=== PATIENT | male | born 1945 | race Two or more races ===

== ENCOUNTER 2019-05-29 11:27 | Inpatient (IN) | payer OTHER, MEDICARE ==
[~2019-05-29] VITALS: Ht 160 cm; Wt 62.9 kg
[2019-06-07 13:14] VITALS: BP 97/61
== END 2019-06-07 16:36 | disposition home or self-care (01) | DRG 215 ==
LOC: ED 12:33 → EDIP 13:14 → 5SO 14:31 → CCU 06-05 14:41 → 5SO 06-06 10:30
PROVIDERS: ADMIT Hospitalist; ATTEND Hospitalist
PROC: 4A023N7 Measurement of Cardiac Sampling and Pressure, Left Heart, Percutaneous Approach (ICD-10-PCS; 2019-06-01)
PROC: B2111ZZ Fluoroscopy of Multiple Coronary Arteries using Low Osmolar Contrast (ICD-10-PCS; 2019-06-01)
PROC: B41F1ZZ Fluoroscopy of Right Lower Extremity Arteries using Low Osmolar Contrast (ICD-10-PCS; 2019-06-01)
PROC: 02HA3RJ Insertion of Short-term External Heart Assist System into Heart, Intraoperative, Percutaneous Approach (ICD-10-PCS; principal; 2019-06-05)
PROC: 027034Z Dilation of Coronary Artery, One Artery with Drug-eluting Intraluminal Device, Percutaneous Approach (ICD-10-PCS; 2019-06-05)
PROC: 5A0221D Assistance with Cardiac Output using Impeller Pump, Continuous (ICD-10-PCS; 2019-06-05)
DX: I24.9 Acute ischemic heart disease, unspecified (principal); I50.43 Acute on chronic combined systolic (congestive) and diastolic (congestive) heart failure; I25.118 Atherosclerotic heart disease of native coronary artery with other forms of angina pectoris; D75.89 Other specified diseases of blood and blood-forming organs; E11.65 Type 2 diabetes mellitus with hyperglycemia; E78.5 Hyperlipidemia, unspecified; I11.0 Hypertensive heart disease with heart failure; I08.3 Combined rheumatic disorders of mitral, aortic and tricuspid valves; I25.5 Ischemic cardiomyopathy; I27.29 Other secondary pulmonary hypertension; I27.81 Cor pulmonale (chronic); M10.071 Idiopathic gout, right ankle and foot; Z79.899 Other long term (current) drug therapy; Z83.3 Family history of diabetes mellitus; Z87.891 Personal history of nicotine dependence; Z95.2 Presence of prosthetic heart valve
CPT/HCPCS: 33990; 36415; 73630; 93017; 93454; 99285; C9600; J3490; 0399T; 71045; 78452; 80048; 80053; 80061; 83036; 83735; 83880; 84100; 84443; 84484; 84550; 85025; 85610; 85730; 87081; 93005; 93306; 93922; 93970; 96374; 99156; 99157; C1760; C1769; C1894; G0378; J0583; J1644; J1650; J2250; J2785; J3010; A9502; C1725; C1874; C1887; J1940; J7030; J7050; J7512; Q9967

== ENCOUNTER 2019-10-02 06:46 | Outpatient (CLI) | payer OTHER, MEDICARE ==
[~2019-10-02 06:46] MED LIST: ACET325T26 PO; ALLO100T30 PO; ASPI81TA45 PO; ATOR10TA9 PO; ATOR40TA78 PO; CARV6.2512 PO; FURO-93 PO; FURO20TA3 PO; LISI5TAB7 PO; METO25TA91 PO; PRED20TA PO; SPIR25TA5 PO; TICA90TA PO
== END 2019-10-02 23:59 | disposition home or self-care (01) ==
LOC: CFH 06:46
PROVIDERS: ATTEND Registered Nurse
DX: I08.3 Combined rheumatic disorders of mitral, aortic and tricuspid valves (principal); E78.5 Hyperlipidemia, unspecified; I25.2 Old myocardial infarction
CPT/HCPCS: 93306

== ENCOUNTER 2019-10-29 08:00 | Outpatient (CLI) | payer OTHER, MEDICARE ==
[2019-10-29] MEDS ORDERED: SPIR25TA5 PO (09:51)
[2019-10-29] MEDS ORDERED: ASPI-496 PO (09:51)
[2019-10-29] MEDS ORDERED: METO25TA91 PO (09:51)
[2019-10-29] MEDS ORDERED: LISI5TAB7 PO (09:51)
[2019-10-29] MEDS ORDERED: ATOR40TA78 PO (09:51)
[2019-10-29] MEDS ORDERED: ALLO100T30 PO (09:51)
[2019-10-29] MEDS ORDERED: ASCO500T8 PO (10:00)
[2019-10-29] MEDS ORDERED: MULT-658 PO (10:00)
== END 2019-10-29 23:59 | disposition home or self-care (01) ==
LOC: STAR 08:00
PROVIDERS: ATTEND Internal Medicine Cardiovascular Disease
DX: I25.5 Ischemic cardiomyopathy (principal)
CPT/HCPCS: 93005

== ENCOUNTER 2019-11-01 10:24 | Observation (INO) | payer OTHER, MEDICARE ==
[2019-10-29 09:45] VITALS: BP 102/56
[2019-10-29 10:22] LABS: BASOPHILS # (AUTO) 0.01 x10^3/uL (0-0.1); BASOPHILS % (AUTO) 0 % (0-1); EOSINOPHILS # (AUTO) 0.05 x10^3/uL (0-0.4); EOSINOPHILS % (AUTO) 1 % (1-7); LYMPHOCYTES # (AUTO) 1.36 x10^3/uL (1-3.4); LYMPHOCYTES % (AUTO) 24 % (22-44); MD NO; MEAN CORPUSCULAR HEMOGLOBIN 33.7 pg (27.5-34.5); MEAN CORPUSCULAR HGB CONC 32.8 g/dL (33.2-36.2); MEAN CORPUSCULAR VOLUME 102.6 fL (81-97); MEAN PLATELET VOLUME 9.5 fL (7.4-10.4); MONOCYTES # (AUTO) 0.45 x10^3/uL (0.2-0.8); MONOCYTES % (AUTO) 8 % (2-9); NEUTROPHILS # (AUTO) 3.93 x10^3/uL (1.8-6.8); NEUTROPHILS % (AUTO) 68 % (42-75); PLATELET COUNT 193 x10^3/uL (130-400); RED BLOOD COUNT 4.34 x10^6/uL (4.38-5.82); RED CELL DISTRIBUTION WIDTH 13.3 % (9.4-14.8)
[2019-10-29 10:32] LABS: INTERNATIONAL NORMALIZED RATIO 1.01 (0.93-1.1); PROTHROMBIN TIME 10.6 Seconds (9.6-11.5)
[2019-10-29 10:35] LABS: ANION GAP 4 mmol/L (5-15); CALCIUM 8.7 mg/dL (8.5-10.1); CHLORIDE 109 mmol/L (98-107); CREATININE 0.89 mg/dL (0.7-1.3)
[~2019-11-01] VITALS: Ht 160 cm; Wt 59.0 kg
[~2019-11-01 10:24] MED LIST changes: +ASCO500T8 PO; +ASPI-496 PO; +MULT-658 PO
[2019-11-01] MEDS ORDERED: SODIUM CHLORIDE 0.9% 1,000 ML IV SCH (11:21)
[2019-11-01] MEDS ORDERED: CLOP75TA52 PO (11:35)
[2019-11-01] MEDS ORDERED: CEFAZOLIN PMX 1GM/50ML 50 ML ONE (13:49)
[2019-11-01] MEDS ORDERED: CEFAZOLIN 1,000 MG ONE (13:49)
[2019-11-01] MEDS ORDERED: MIDAZOLAM 1 MG/ML, 5ML ONE (13:49)
[2019-11-01] MEDS ORDERED: FENTANYL PF 100 MCG/2ML ONE (13:49)
[2019-11-01] MEDS ORDERED: HYDROcodone/APAP 5/325 TABLET PO PRN (15:30)
[2019-11-01] MEDS ORDERED: ACETAMINOPHEN 325 MG TABLET PO PRN (15:30)
[2019-11-01] MEDS ORDERED: HOLD MEDICATION MC PRN (15:30)
[2019-11-01 20:00] VITALS: BP 100/59
[2019-11-01] MEDS ORDERED: ATORVASTATIN 40 MG TABLET PO SCH (21:00)
[2019-11-01] MEDS: CEFAZOLIN PMX 1GM/50ML 50 ML IVPB SCH (21:02)
[2019-11-01] MEDS: SODIUM CHLORIDE FLUSH 10ML SYR IVF SCH (21:03)
[2019-11-01 22:52] VITALS: BP 100/59
[2019-11-02 01:24] VITALS: BP 97/41
[2019-11-02] MEDS: CEFAZOLIN PMX 1GM/50ML 50 ML IVPB SCH (03:52)
[2019-11-02 06:50] VITALS: BP 107/56
[2019-11-02] MEDS ORDERED: MULTIVITAMIN 1 TABLET PO SCH (09:00)
[2019-11-02] MEDS ORDERED: LISINOPRIL 5 MG TABLET PO SCH (09:00)
[2019-11-02] MEDS ORDERED: SPIRONOLACTONE 25 MG TABLET PO SCH (09:00)
[2019-11-02] MEDS ORDERED: METOPROLOL SUCCINATE 25 MG TAB.ER.24H PO SCH (09:00)
[2019-11-02] MEDS ORDERED: CLOPIDOGREL 75 MG TABLET PO SCH (09:00)
[2019-11-02] MEDS ORDERED: ASPIRIN 81 MG TABLET EC PO SCH (09:00)
[2019-11-02] MEDS ORDERED: ASCORBIC ACID 500 MG TABLET PO SCH (09:00)
[2019-11-02] MEDS: SODIUM CHLORIDE FLUSH 10ML SYR IVF SCH (10:30)
== END 2019-11-02 12:25 | disposition home or self-care (01) ==
LOC: CACL 10:24 → 5SO 14:56 → CACL 15:15 → DCLOUNGE 11-02 12:10
PROVIDERS: ADMIT Internal Medicine Cardiovascular Disease; ATTEND Internal Medicine Cardiovascular Disease
DX: I25.10 Atherosclerotic heart disease of native coronary artery without angina pectoris (principal); I25.5 Ischemic cardiomyopathy; I11.0 Hypertensive heart disease with heart failure; I50.9 Heart failure, unspecified; E11.9 Type 2 diabetes mellitus without complications; I21.4 Non-ST elevation (NSTEMI) myocardial infarction; I35.0 Nonrheumatic aortic (valve) stenosis; I34.0 Nonrheumatic mitral (valve) insufficiency; E78.00 Pure hypercholesterolemia, unspecified; Z79.82 Long term (current) use of aspirin; Z79.01 Long term (current) use of anticoagulants
CPT/HCPCS: 33249; 36415; 71045; 71046; 80048; 85025; 85610; 96365; 96366; 99156; 99157; C1721; C1779; C1892; C1895; G0378; J0690; J2250; J3010

== ENCOUNTER → 2020-07-30 | Outpatient (CLI) | payer OTHER, MEDICARE ==
[~2020-07-30] MED LIST changes: +CLOP75TA52 PO
== END | disposition home or self-care (01) ==
LOC: CFH 14:45
PROVIDERS: ATTEND Internal Medicine Cardiovascular Disease
DX: I08.3 Combined rheumatic disorders of mitral, aortic and tricuspid valves (principal)
CPT/HCPCS: 93306

== ENCOUNTER → 2021-06-26 | Outpatient (CLI) | payer OTHER, MEDICARE | END | disposition home or self-care (01) | LOC: CVU 09:36 | PROVIDERS: ATTEND Internal Medicine Cardiovascular Disease | DX: I08.3 Combined rheumatic disorders of mitral, aortic and tricuspid valves (principal); I10 Essential (primary) hypertension; E78.00 Pure hypercholesterolemia, unspecified; I25.10 Atherosclerotic heart disease of native coronary artery without angina pectoris | CPT/HCPCS: 93306 ==

== ENCOUNTER → 2021-06-27 | Outpatient (CLI) | payer OTHER, MEDICARE ==
[2021-06-27 07:46] LABS: BASOPHILS % (AUTO) 1 % (0-1); EOSINOPHILS % (AUTO) 1 % (1-7); LYMPHOCYTES % (AUTO) 26 % (22-44); MEAN CORPUSCULAR HEMOGLOBIN 32.7 pg (27.5-34.5); MEAN CORPUSCULAR HGB CONC 33.6 g/dL (33.2-36.2); MONOCYTES % (AUTO) 10 % (2-9); NEUTROPHILS % (AUTO) 62 % (42-75); PLATELET COUNT 175 x10^3/uL (130-400); RED BLOOD COUNT 4.19 x10^6/uL (4.38-5.82); RED CELL DISTRIBUTION WIDTH 13.5 % (9.4-14.8)
[2021-06-27 07:50] LABS: ALANINE AMINOTRANSFERASE 22 U/L (12-78); ALBUMIN 3.5 g/dL (3.4-5.0); ANION GAP 5 mmol/L (5-15); CALCIUM 8.9 mg/dL (8.5-10.1); CHLORIDE 109 mmol/L (98-107); CHOLESTEROL, TOTAL 113 mg/dL (140-239); CREATININE 0.75 mg/dL (0.7-1.3)
[2021-06-27 07:52] LABS: ALKALINE PHOSPHATASE 79 U/L (45-117); BILIRUBIN,TOTAL 0.7 mg/dL (0.2-1.0); HDL CHOLESTEROL (DIRECT) 46 mg/dL (40-60); TRIGLYCERIDES 53 mg/dL (50-200); VLDL CHOLESTEROL 11 mg/dL (0-25)
[2021-06-27 08:09] LABS: CHOL/HDL RATIO 2.5; HDL CHOL % 41 % (26-37); LDL CHOLESTEROL,CALCULATED 56 mg/dL (54-169); LDL/HDL RATIO 1.2 (0.5-3.0)
== END | disposition home or self-care (01) ==
LOC: LAB 07:09
PROVIDERS: ATTEND Internal Medicine Cardiovascular Disease
DX: E11.8 Type 2 diabetes mellitus with unspecified complications (principal); E78.00 Pure hypercholesterolemia, unspecified; I21.4 Non-ST elevation (NSTEMI) myocardial infarction; I25.10 Atherosclerotic heart disease of native coronary artery without angina pectoris; I25.5 Ischemic cardiomyopathy; I34.0 Nonrheumatic mitral (valve) insufficiency; I35.0 Nonrheumatic aortic (valve) stenosis; I10 Essential (primary) hypertension; Z95.810 Presence of automatic (implantable) cardiac defibrillator
CPT/HCPCS: 36415; 80053; 80061; 85025